=== PATIENT | female | born 1955 | race Hispanic/Latino ===

== ENCOUNTER 2024-07-26 11:40 | Emergency (ER) | payer MEDICARE ==
[~2024-07-26] VITALS: Ht 149.9 cm; Wt 80.7 kg
[2024-07-26 13:00] VITALS: PULSE 86; RESP 19; TEMP 98.2; O2SAT 97
== END 2024-07-26 13:09 | disposition home or self-care (01) ==
LOC: ER 11:46
DX: T78.49XA Other allergy, initial encounter (principal); I10 Essential (primary) hypertension; E11.9 Type 2 diabetes mellitus without complications; E78.5 Hyperlipidemia, unspecified; K21.9 Gastro-esophageal reflux disease without esophagitis
CPT/HCPCS: 99284